=== PATIENT | male | born 1975 | race Caucasian/White ===

== ENCOUNTER 2016-06-04 17:12 | Emergency (ER) | payer BC, SELFPAY ==
[2016-06-04] MEDS ORDERED: Ketorolac Tromethamine 30 MG/ML VIAL ONE (17:48)
[2016-06-04] MEDS ORDERED: diphenhydrAMINE HCl 50 MG/ML 1 ML VIAL ONE (17:48)
[2016-06-04] MEDS ORDERED: Prochlorperazine 10 MG/2 ML VIAL ONE (17:48)
[2016-06-04 17:52] LABS: #Basophils 0.1 thou/uL (0.0-0.2); #Eosinphils 0.2 thou/uL (0.0-0.7); #Lymphocytes 1.9 thou/uL (1.20-3.40); #Monocytes 0.5 thou/uL (0.11-0.59); %Basophils 1.2 % (0.0-1.0); %Eosinophils 4.2 % (0.0-10.0); %Lymphocytes 33.2 % (21.0-51.0); %Monocytes 8.2 % (0.0-10.0); %Neutrophils 53.2 % (42.0-75.0); Hemoglobin 15.7 g/dL (14.0-18.0); Mean Corpuscular HGB CONC 34.9 g/dL (32.0-36.0); Mean Corpuscular Hemoglobin 33.2 pg (27.0-31.0); Mean Corpuscular Volume 95.3 fl (80.0-94.0); Mean Platelet Volume 7.3 fL (7.4-10.4); Platelet Count 211 thou/uL (130-400); RBC Distribution Width 10.9 % (11.5-14.5); Red Blood Cell (RBC) Count 4.71 mill/uL (4.70-6.10); White Blood Cell (WBC) Count 5.6 thou/uL (4.8-10.8)
[2016-06-04] MEDS ORDERED: Metoclopramide HCl 10 MG/2 ML VIAL ONE (17:55)
[2016-06-04 18:06] LABS: CKMB 3.5 ng/mL (0-6.6); Troponin I Less than 0.010 ng/mL (< 0.028)
[2016-06-04 18:07] LABS: ALT (SGPT) 16 U/L (0-55); AST (SGOT) 24 U/L (5-34); Albumin 4.8 g/dL (3.5-5.0); Alkaline Phosphatase 57 U/L (40-150); Anion Gap 12 mmol/L (10-20); BUN (Urea Nitrogen) 19 mg/dL (8.9-20.6); Bilirubin, Total 0.6 mg/dL (0.2-1.2); Calc. Creatinine Clearance 0 mL/min (70-130); Calcium 9.6 mg/dL (7.8-10.44); Carbon Dioxide 25 mmol/L (22-29); Chloride 105 mmol/L (98-107); Estimated GFR-MDRD 90; Globulin 2.8 g/dL (2.4-3.5); Glucose 90 mg/dL (70-105); Potassium 4.1 mmol/L (3.5-5.1); Protein, Total 7.6 g/dL (6.0-8.3); Sodium 138 mmol/L (136-145)
--- NOTE | 2016-06-04 18:23 | CT ---
CT BRAIN WITHOUT CONTRAST 06/04/16 Comparison is made with the 05/22/15 study. The ventricles are normal in size and show no shift. No intracranial bleeding, mass or sign of CVA w as found. No extra-axial hematoma was seen. The calvarium appears intact and the sphenoid sinus is c lear. IMPRESSION: No acute intracranial finding. POS: HOME
--- NOTE | 2016-06-04 18:41 | CT ---
CT CERVICAL SPINE 06/04/[address] of the cervical spine was performed for evaluation of headache, neck pain and weakness aft er a fall. Axial slices were acquired, then coronal and sagittal reconstructions were done. No fracture, dislocation, or disc space narrowing was seen. The C1 to dens distance is normal and th e soft tissues are normal in thickness. No swelling was seen. Within the limitations of this study, no gross disc herniations or epidural lesions were appreciated. IMPRESSION: No acute traumatic findings. POS: HOME
[2016-06-04 20:01] LABS: Color Of CSF Supernatant COLORLESS (Colorless); Tube # 2; Unspun CSF Color COLORLESS (Colorless)
[2016-06-04 20:03] LABS: CSF Source CSF; Clarity Clear (Clear); RBC Count - Manual 10 /cumm (None Seen); Tube # 1; WBC/NonHematics Count - Manual 2 /cumm (0-5)
[2016-06-04 20:35] LABS: CSF, Glucose 64 mg/dL (40-70); CSF, Protein 29 mg/dL (15-40)
== END 2016-06-04 19:33 | disposition short-term general hospital (02) ==
LOC: BURERS 17:12
DX: R29.818 Other symptoms and signs involving the nervous system (principal); R26.9 Unspecified abnormalities of gait and mobility; F17.210 Nicotine dependence, cigarettes, uncomplicated
CPT/HCPCS: 36415; 70450; 72125; 80053; 82553; 82945; 84157; 84443; 84484; 85025; 87070; 87205; 89051; J0780; J1200; J1885; J2765

== ENCOUNTER 2017-06-22 17:13 | Emergency (ER) | payer SELFPAY ==
[2017-06-22] MEDS ORDERED: HYDROcodone/Acetaminophen 5/325 mg Tablet ONE (17:55)
== END 2017-06-22 17:58 | disposition home or self-care (01) ==
LOC: BURERS 17:13
DX: N64.4 Mastodynia (principal); F32.9 Major depressive disorder, single episode, unspecified; F17.210 Nicotine dependence, cigarettes, uncomplicated
CPT/HCPCS: 99283

== ENCOUNTER 2018-05-24 08:48 | Emergency (ER) | payer SELFPAY ==
[2018-05-24] MEDS ORDERED: Ketorolac Tromethamine 30 MG/ML VIAL ONE (09:15)
[2018-05-24] MEDS ORDERED: Ondansetron PF 4 MG/2 ML Vial ONE (09:19)
[2018-05-24 09:29] LABS: Clarity Clear (Clear); Glucose, Urine (Dipstick) Negative (Negative); Leukocyte Negative (Negative); Nitrite Negative (Negative); Protein, Urine (Dipstick) Negative (Neg-Trace); Specific Gravity, Urine 1.015 (1.005-1.030); pH, Urine 8.5 (5.0-9.0)
[2018-05-24 09:30] LABS: Bilirubin Negative (Negative); Blood, Urine Negative (Negative); Urobilinogen 0.2 mg/dL (0.2-1.0)
[2018-05-24 10:01] LABS: ALT (SGPT) 43 U/L (8-55); AST (SGOT) 35 U/L (5-34); Albumin 4.8 g/dL (3.5-5.0); Alkaline Phosphatase 77 U/L (40-150); Anion Gap 15 mmol/L (10-20); BUN (Urea Nitrogen) 9 mg/dL (8.9-20.6); Bilirubin, Total 0.5 mg/dL (0.2-1.2); Calc. Creatinine Clearance 0 mL/min (70-130); Calcium 10.5 mg/dL (7.8-10.44); Carbon Dioxide 28 mmol/L (22-29); Chloride 102 mmol/L (98-107); Estimated GFR-MDRD Greater than 90; Globulin 3.1 g/dL (2.4-3.5); Glucose 96 mg/dL (70-105); Potassium 4.6 mmol/L (3.5-5.1); Protein, Total 7.9 g/dL (6.0-8.3); Sodium 140 mmol/L (136-145)
[2018-05-24] MEDS ORDERED: Fentanyl 100 MCG/2 ML VIAL ONE (10:18)
[2018-05-24 10:22] LABS: #Basophils 0.1 thou/uL (0.0-0.2); #Eosinphils 0.3 thou/uL (0.0-0.7); #Lymphocytes 1.3 thou/uL (1.20-3.40); #Monocytes 0.3 thou/uL (0.11-0.59); #Neutrophils 2.6 thou/uL (1.40-6.50); %Basophils 2.4 % (0.0-1.0); %Eosinophils 5.6 % (0.0-10.0); %Lymphocytes 28.8 % (21.0-51.0); %Monocytes 7.4 % (0.0-10.0); %Neutrophils 55.9 % (42.0-75.0); Hemoglobin 17.3 g/dL (14.0-18.0); Mean Corpuscular HGB CONC 33.5 g/dL (32.0-36.0); Mean Corpuscular Hemoglobin 32.8 pg (27.0-31.0); Mean Corpuscular Volume 97.7 fL (78.0-98.0); Mean Platelet Volume 6.8 fL (7.4-10.4); Platelet Count 223 thou/uL (130-400); RBC Distribution Width 11.5 % (11.5-14.5); Red Blood Cell (RBC) Count 5.29 mill/uL (4.70-6.10); White Blood Cell (WBC) Count 4.6 thou/uL (4.8-10.8)
--- NOTE | 2018-05-24 16:49 | CT ---
CT ABDOMEN AND PELVIS WITHOUT CONTRAST: Date: 05-24-18 FINDINGS: The lung bases are clear. No infiltrate or effusion was seen. The liver, spleen, pancreas, gallbladde r, adrenal glands, kidneys and abdominal aorta appear normal within the limitation of a noncontrast s tudy. No renal calculi or urinary tract obstruction were apparent. No ureteral calculi were seen. There are multiple fluid filled loops of small bowel which are nondilated and do not seem thick. Ente ritis is a possibility to consider. There are no inflammatory changes around bowel. What I interpret to be the appendix is seen poorly but the area appears normal around it. CT of the pelvis shows no ma ss, fluid collection, or inflammatory change. IMPRESSION: 1. Multiple nondilated fluid filled loops of bowel, mainly small bowel. Enteritis is possible. 2. No evidence of urinary tract calculi or obstruction. POS: HOME
== END 2018-05-24 10:48 | disposition home or self-care (01) ==
LOC: BURERS 08:48
DX: K52.9 Noninfective gastroenteritis and colitis, unspecified (principal); F17.210 Nicotine dependence, cigarettes, uncomplicated
CPT/HCPCS: 74176; 80053; 81003; 85025; 96374; 96375; J1885; J2405; J3010